=== PATIENT | female | born 1990 | race Asian ===

== ENCOUNTER → 2024-01-07 06:34 | Day surgery (SDC) | payer OTHER, SELFPAY | LOC: GI 06:34 | PROVIDERS: ATTENDING PHYSICIAN Internal Medicine Gastroenterology | DX: K22.89 Other specified disease of esophagus (principal); K31.89 Other diseases of stomach and duodenum; K31.7 Polyp of stomach and duodenum; K31.A0 Gastric intestinal metaplasia, unspecified; R10.13 Epigastric pain | CPT/HCPCS: 43239; 88305; 88342 ==

== ENCOUNTER → 2024-02-02 07:20 | Outpatient (REF) | payer OTHER, SELFPAY | LOC: HWRAD 07:20 | PROVIDERS: ATTENDING PHYSICIAN Internal Medicine Gastroenterology; FAMILY PHYSICIAN Emergency Medicine | DX: R10.13 Epigastric pain (principal) | CPT/HCPCS: 76700 ==